=== PATIENT | female | born 1965 ===

== ENCOUNTER 2023-10-08 06:24 | Day surgery (SDC) | payer OTHER ==
[~2023-10-08 06:24] MED LIST: Dextrose 5%-0.45% NaCl 1,000 ML IV SCH; Midazolam 1 MG/ML 2 ML SDV ONE; fentaNYL 100 MCG/2 ML SDV ONE
[2023-10-08] MEDS ORDERED: Midazolam 1 MG/ML 2 ML SDV IV ONE (06:25)
[2023-10-08] MEDS ORDERED: fentaNYL 100 MCG/2 ML SDV IV ONE (06:25)
[2023-10-08] MEDS: Dextrose 5%-0.45% NaCl 1,000 ML IV SCH (07:10)
[2023-10-08] MEDS: fentaNYL 100 MCG/2 ML SDV IV ONE ×2 (07:27→07:28)
[2023-10-08] MEDS: Midazolam 1 MG/ML 2 ML SDV IV ONE ×2 (07:28→07:29)
== END 2023-10-08 09:30 | disposition home or self-care (01) ==
LOC: DL.ENDO 06:24
PROVIDERS: ATTEND Internal Medicine Gastroenterology
DX: K20.90 Esophagitis, unspecified without bleeding (principal); I10 Essential (primary) hypertension; E78.00 Pure hypercholesterolemia, unspecified; F41.8 Other specified anxiety disorders; E03.9 Hypothyroidism, unspecified
CPT/HCPCS: 87077; J2250; J3010; J7042